=== PATIENT | female | born 1955 | race Two or more races ===

== ENCOUNTER 2019-11-17 16:03 | Inpatient (IN) | payer MEDICARE, OTHER ==
[~2019-11-17] VITALS: Ht 167.6 cm; Wt 111.2 kg
[2019-11-17] MEDS ORDERED: SODIUM CHLORIDE 0.9% 1,000 ML IV ONE (16:45)
[2019-11-17] MEDS ORDERED: MORPHINE SULFATE 4 MG/ML SYR/VIAL IV ONE (16:45)
[2019-11-17] MEDS ORDERED: ONDANSETRON HCL 4 MG/2 ML VIAL IV ONE ×2 (16:45→20:15)
[2019-11-17 16:59] LABS: Basophils # (auto) 0.1 10 ^3/uL (0-0.2); Basophils % (auto) 0.6 % (0.0-2.0); Eosinophils # (auto) 0.4 10 ^3/uL (0-0.8); Eosinophils % (auto) 2.7 % (0.0-7.0); Hematocrit 41.3 % (36.0-46.0); Hemoglobin 13.8 g/dL (12.2-16.2); Lymphocytes # (auto) 1.2 10 ^3/uL (0.4-5.4); Lymphocytes % (auto) 9.5 % (10.0-50.0); Mean Corpuscular Hemoglobin 27.7 pg (28.0-32.0); Mean Corpuscular Hgb Conc. 33.5 g/dL (32.0-36.0); Mean Corpuscular Volume 82.6 fL (80.0-100.0); Monocytes # (auto) 0.6 10 ^3/uL (0-1.3); Monocytes % (auto) 4.4 % (0.0-12.0); Neutrophils # (auto) 10.8 10 ^3/uL (1.6-8.6); Neutrophils % (auto) 82.8 % (37.0-80.0); Nucleated Red Blood Cells % 0.1 %; Platelet Count (auto) 342 10^3/uL (140-450); Red Cell Distribution Width 14.8 % (11.8-14.3); White Blood Cell 13.1 10^3/uL (4.4-10.8)
[2019-11-17 17:16] LABS: Calcium 9.6 mg/dL (8.5-10.1); Potassium 4.2 mmol/L (3.5-5.1)
[2019-11-17 17:20] LABS: Bilirubin, Total 0.6 mg/dL (0.2-1.0); Total Protein 8.3 g/dL (6.4-8.2)
[2019-11-17] MEDS ORDERED: HYDROmorphone HCL 2 MG/ML VL IV ONE ×2 (17:30→19:15)
[2019-11-17] MEDS ORDERED: metroNIDAZOLE 500MG/100ML 100 ML IV ONE (19:15)
[2019-11-17] MEDS ORDERED: cefTRIAXone 1GM/50ML D5W 50 ML IV ONE (19:15)
[2019-11-17] MEDS ORDERED: SITA50TA28 PO (21:13)
[2019-11-17] MEDS ORDERED: LEVO125T7 PO (21:13)
[2019-11-17] MEDS ORDERED: BUPR-60 PO (21:13)
[2019-11-17] MEDS ORDERED: LAMO200T34 PO (21:13)
[2019-11-17] MEDS ORDERED: GLIM-6 PO (21:13)
[2019-11-17] MEDS ORDERED: DEXTROSE (50%) 50ML SYRG IV PRN (21:15)
[2019-11-17 22:05] VITALS: BP 114/61
[2019-11-17 22:21] LABS: INR 1.01 (0.9-1.15); Partial Thromboplastin Time 25.3 sec (23.0-31.2)
[2019-11-17] MEDS: MORPHINE SULFATE 4 MG/ML SYR/VIAL IV PRN (22:31)
--- NOTE | 2019-11-17 22:31 | NUR ---
ER CALLED SURGICAL CONSULT WITH DR. YUSUF.
[2019-11-17] MEDS: SODIUM CHLORIDE 0.9% 1,000 ML IV SCH (22:32)
--- NOTE | 2019-11-17 23:00 | NUR ---
ms admit from ed. pt arrived awake and alert. pt oriented to this nurse, room, restroom, bed controls and call light usage. pt alert and oriented x4, able to transfer from stretcher to bed unassisted without issue. pt reports abdominal pain has been intermittent times one week, typically after meals. pt updated on plan of care. pt bed locked, low and 2x rails up. call light in reach, this nurse to round q1hr and prn. pt encouraged to call as needed.
[2019-11-18] MEDS: ONDANSETRON HCL 4 MG/2 ML VIAL IV PRN ×2 (01:30→08:38)
[2019-11-18] MEDS: MORPHINE SULFATE 4 MG/ML SYR/VIAL IV PRN ×2 (02:48→08:38)
[2019-11-18] MEDS ORDERED: HYDROmorphone HCL 2 MG/ML VL IV ONE (03:15)
--- NOTE | 2019-11-18 03:28 | NUR ---
pt reports no relief from nausea. just vomited copious amount of bilious fluid. this nurse to page hospitalist for change in nausea medication.
[2019-11-18] MEDS ORDERED: PROMETHAZINE HCL 25 MG/ML 1ML IV ONE (05:15)
[2019-11-18 05:18] VITALS: BP 130/61
[2019-11-18] MEDS: InsuLIN REG 1unit/0.01ml Soln (100units/ml) SC SCH ×4 (06:00→18:00)
[2019-11-18] MEDS: metroNIDAZOLE 500MG/100ML 100 ML IV SCH ×3 (06:07→22:07)
[2019-11-18] MEDS: ACCU-CHEK COMFORT CURVE STRIP VI SCH ×4 (06:07→18:03)
[2019-11-18 07:28] LABS: Basophils # (auto) 0 10 ^3/uL (0-0.2); Basophils % (auto) 0.2 % (0.0-2.0); Eosinophils # (auto) 0.1 10 ^3/uL (0-0.8); Eosinophils % (auto) 0.7 % (0.0-7.0); Hematocrit 38.5 % (36.0-46.0); Hemoglobin 12.7 g/dL (12.2-16.2); Lymphocytes # (auto) 0.9 10 ^3/uL (0.4-5.4); Lymphocytes % (auto) 7.8 % (10.0-50.0); Mean Corpuscular Hemoglobin 27.8 pg (28.0-32.0); Mean Corpuscular Hgb Conc. 32.9 g/dL (32.0-36.0); Mean Corpuscular Volume 84.4 fL (80.0-100.0); Monocytes # (auto) 0.5 10 ^3/uL (0-1.3); Monocytes % (auto) 4.6 % (0.0-12.0); Neutrophils # (auto) 9.5 10 ^3/uL (1.6-8.6); Neutrophils % (auto) 86.7 % (37.0-80.0); Nucleated Red Blood Cells % 0.1 %; Platelet Count (auto) 310 10^3/uL (140-450); Red Blood Cells 4.56 10^6/uL (4.0-5.20); Red Cell Distribution Width 14.7 % (11.8-14.3)
[2019-11-18 07:49] LABS: BUN/Creatinine Ratio 22.4; Potassium 4.2 mmol/L (3.5-5.1)
--- NOTE | 2019-11-18 08:00 | NUR ---
Received patient alert and oriented x4, not in distress, clear sounds in bilateral upper and diminished in lower lung lobes, RR=18 Sat=95%, deep breathing and coughing was encouraged, demonstrated and verbalized understanding, denied chest pain and SOB, Heart rate=86, abdomen soft and active in all four quadrants, last BM=11/17/19 as reported, keep NPO as ordered, c/o abdominal pain l=11/21, Morphine IV PRN was given as ordered, skin intact and warm to touch, resting on bed, head of bed elevated, terri on low position, rails up x2, call light on reach, pending surgical consult as ordered, will continue monitoring.
[2019-11-18] MEDS: PANTOPRAZOLE 40 MG/10 ML VIAL INJ IV SCH (08:37)
[2019-11-18] MEDS: cefTRIAXone 1GM/50ML D5W 50 ML IV SCH (08:37)
[2019-11-18] MEDS: SODIUM CHLORIDE 0.9% 1,000 ML IV SCH (08:37)
[2019-11-18 09:00] VITALS: BP 111/73
[2019-11-18] MEDS ORDERED: HYDROmorphone HCL 2 MG/ML VL IV PRN ×4 (10:00→15:30)
[2019-11-18] MEDS ORDERED: SODIUM CHLORIDE 0.9% 1,000 ML IV SCH (10:00)
[2019-11-18] MEDS ORDERED: LACTATED RINGER'S 1,000 ML IV SCH (10:15)
[2019-11-18] MEDS ORDERED: LEVOTHYROXINE SODIUM 50 MCG TAB PO ONE (11:30)
--- NOTE | 2019-11-18 12:30 | NUR ---
CONSENT FORM ON CHART CHECK LIST COMPLETED, NOT IN DISTRESS, WENT ON BED TO PRE OP , TOLERATED WELL, WILL CONTINUE FOLLOW UP.
[2019-11-18] MEDS ORDERED: MIDAZOLAM HCL 1MG/1ML-2 ML VIAL ONE (12:58)
[2019-11-18] MEDS ORDERED: SODIUM CHLORIDE LOCK 10 ML ONE (12:58)
[2019-11-18] MEDS ORDERED: fentaNYL CITRATE 100 MCG/2 ML VL ONE ×2 (12:58→14:29)
[2019-11-18] MEDS ORDERED: MEPERIDINE HCL (25 MG/ML) 1ML VIAL ONE (12:58)
[2019-11-18] MEDS ORDERED: PROPOFOL 10 MG/ML 20 ML IV ONE (12:58)
[2019-11-18] MEDS ORDERED: ONDANSETRON HCL 4 MG/2 ML VIAL ONE (12:58)
[2019-11-18] MEDS ORDERED: ROCURONIUM 10MG/ML 10ML VIAL IV ONE (12:59)
[2019-11-18] MEDS ORDERED: GLYCOPYRROLATE 0.2 MG/ML 1ML VIAL ONE (12:59)
[2019-11-18] MEDS ORDERED: NEOSTIGMINE 1 MG/ML INJ (10mg/10ML VIAL) ONE (12:59)
[2019-11-18 13:00] VITALS: BP 111/44
[2019-11-18] MEDS ORDERED: ACCU-CHEK COMFORT CURVE STRIP VI ONE (13:30)
[2019-11-18] MEDS ORDERED: MORPHINE SULFATE 4 MG/ML SYR/VIAL IV PRN ×2 (13:30→15:30)
[2019-11-18] MEDS ORDERED: METOCLOPRAMIDE HCL 5MG/ml INJ 2ml VIAL IV PRN (13:30)
[2019-11-18] MEDS ORDERED: cefTRIAXone 1GM/50ML D5W 50 ML IV ONE (13:40)
[2019-11-18] MEDS ORDERED: ePHEDrine SULFATE 50 MG/ML AMP IV PRN (15:30)
[2019-11-18] MEDS ORDERED: ONDANSETRON HCL 4 MG/2 ML VIAL IV PRN (15:30)
[2019-11-18] MEDS ORDERED: LABETALOL HCL 5 MG/ML 4ML SYRINGE IV PRN (15:30)
[2019-11-18] MEDS ORDERED: MIDAZOLAM HCL 1MG/1ML-2 ML VIAL IV PRN (15:30)
--- NOTE | 2019-11-18 16:05 | NUR ---
Back from or, alert and oriented x4, not in distress, mid abdominal surgical site covered with dry and intact dressing, abdominal binder on, tolerated well, VS T=98.2 RR=16 Sat=95% P=73 RH=788/68, head of bed elevated, bed on low position, rails up x2, call light on reach, will continue monitoring.
[2019-11-18] MEDS: LACTATED RINGER'S 1,000 ML IV SCH ×2 (16:34→22:07)
[2019-11-18] MEDS: PROMETHAZINE HCL 25 MG/ML 1ML IV PRN (16:37)
--- NOTE | 2019-11-18 19:48 | NUR ---
REPORT WAS GIVEN TO THE PMO MANAGER RN.
--- NOTE | 2019-11-18 20:04 | NUR ---
open note assumed care of pt. upon entering room pt eyes are closed and breathing is even and unlabored on 2L. this nurse does not observe any s/s that would indicate distress. pt bed is locked, low and 2x rails up. call light in reach, this nurse to return and update pt on plan of care. this nurse to round q1hr and prn.
[2019-11-18 22:00] VITALS: BP 107/81
[2019-11-19] MEDS: ACCU-CHEK COMFORT CURVE STRIP VI SCH ×5 (00:34→23:42)
[2019-11-19] MEDS: HYDROmorphone HCL 2 MG/ML VL IV PRN ×2 (03:53→07:37)
--- NOTE | 2019-11-19 04:41 | NUR ---
JOSE ALFREDO 35ml sanguineous fluid emptied.
[2019-11-19 05:00] VITALS: BP 124/63
[2019-11-19] MEDS: InsuLIN REG 1unit/0.01ml Soln (100units/ml) SC SCH ×5 (06:00→23:42)
[2019-11-19 06:07] LABS: Basophils # (auto) 0 10 ^3/uL (0-0.2); Basophils % (auto) 0.3 % (0.0-2.0); Eosinophils # (auto) 0.2 10 ^3/uL (0-0.8); Eosinophils % (auto) 1.4 % (0.0-7.0); Hemoglobin 12.2 g/dL (12.2-16.2); Lymphocytes # (auto) 1.4 10 ^3/uL (0.4-5.4); Lymphocytes % (auto) 13.4 % (10.0-50.0); Mean Corpuscular Hemoglobin 27.9 pg (28.0-32.0); Mean Corpuscular Volume 84.6 fL (80.0-100.0); Monocytes # (auto) 0.9 10 ^3/uL (0-1.3); Monocytes % (auto) 8.2 % (0.0-12.0); Neutrophils # (auto) 8.1 10 ^3/uL (1.6-8.6); Neutrophils % (auto) 76.7 % (37.0-80.0); Platelet Count (auto) 295 10^3/uL (140-450); Red Blood Cells 4.37 10^6/uL (4.0-5.20); Red Cell Distribution Width 14.8 % (11.8-14.3); White Blood Cell 10.6 10^3/uL (4.4-10.8)
[2019-11-19 06:18] LABS: Calcium 8.3 mg/dL (8.5-10.1)
[2019-11-19] MEDS: LEVOTHYROXINE SODIUM 50 MCG TAB PO SCH (06:19)
[2019-11-19] MEDS: metroNIDAZOLE 500MG/100ML 100 ML IV SCH ×3 (06:19→21:33)
[2019-11-19 06:24] LABS: BUN/Creatinine Ratio 19.6; Bilirubin, Total 0.6 mg/dL (0.2-1.0); Total Protein 6.6 g/dL (6.4-8.2)
[2019-11-19] MEDS: LACTATED RINGER'S 1,000 ML IV SCH ×2 (07:36→14:00)
[2019-11-19] MEDS: PROMETHAZINE HCL 25 MG/ML 1ML IV PRN (07:37)
--- NOTE | 2019-11-19 08:00 | NUR ---
Received patient alert and oriented x3, not in distress, clear sounds in bilateral upper and diminished in lower lung lobes, RR=18 Sat=93%, deep breathing and coughing was encouraged, demonstrated and verbalized understanding, denied chest pain and SOB, Heart rate=86, abdomen soft and active in all four quadrants, abdominal incisions covered with intact dressing, rt side JOSE ALFREDO darning serosanguineous drain, tolerating abdominal binder well, c/o abdominal pain l=10/10, Dilaudid IV PRN was given as ordered, general skin intact and warm to touch, resting on bed, head of bed elevated, terri on low position, rails up x2, call light on reach, will continue monitoring.
[2019-11-19 08:33] VITALS: BP 160/76
[2019-11-19] MEDS ORDERED: ACETAMINOPHEN/CODEINE#3 (300/30mg) TAB PO PRN (09:00)
--- NOTE | 2019-11-19 09:00 | NUR ---
RESTING AND SLEEPING, DEEP BREATHING AND COUGHING ENCOURAGED, OUT OF BED PROVIDED, PATIENT REFUSED.
[2019-11-19] MEDS: cefTRIAXone 1GM/50ML D5W 50 ML IV SCH (09:07)
[2019-11-19] MEDS: PANTOPRAZOLE 40 MG/10 ML VIAL INJ IV SCH (09:07)
[2019-11-19] MEDS ORDERED: HYDROcodone-ACET 5/325MG TAB PO PRN (12:45)
[2019-11-19] MEDS ORDERED: HYDROmorphone HCL 2 MG/ML VL IV PRN (12:45)
[2019-11-19 13:00] VITALS: BP 105/68
[2019-11-19] MEDS: HYDROcodone-ACET 5/325MG TAB PO PRN ×2 (14:15→22:00)
--- NOTE | 2019-11-19 16:08 | NUR ---
TEMPTED TO AMBULATE AND SLIDE FROM THE BED TO THE FLOUR REPORTED, NO INJURY OR BACK PAIN REPORTED, C/O LT ANKLE PAIN, DR. CROW WAS NOTIFIED, PENDING LT. ANKLE X RAY ORDERED,
[2019-11-19 17:00] VITALS: BP 119/68
--- NOTE | 2019-11-19 18:00 | NUR ---
OUT OF BED AMBULATED TO , SITTING ON THE CHAIR EATTING DINNER, TOLERATING WELL, WILL CONTINUE MONITORING.
--- NOTE | 2019-11-19 19:05 | NUR ---
AT 1904 SEIZURE ACTIVITY TONIC CLONIC TYPE FOR FEW SECONDS REPORTED BY THE GUARDS, ON ASSESSMENT NO SEIZURE ACTIVITY NOTED, PATIENT ALERT AND ORIENTED, NOT IN DISTRESS, RR=18 SAT=97%, P=82 IB=523/74, DENIED PAIN, PULED OUT RT.AC IV SITE, DR. BONDS WAS CALLED AND LEFT A MASSAGE, WAITING FOR CALL BACK. Addendum: 11/19/19 at 2004 by Lillian Perez RN WRONG PATIENT
--- NOTE | 2019-11-19 19:30 | NUR ---
Opening Shift Note Assumed care of patient, awake and alert. No S/S of distress/SOB or pain. Noted surgical dressing dry with old wound stain, binder on. Updated on POC and to call for assist PRN, patient verbalized understanding. Bed in lowest and locked position, call light within reach, will continue to monitor for changes Q1hr and PRN.
--- NOTE | 2019-11-19 19:30 | NUR ---
Opening Shift Note Assumed care of patient, awake and alert. No S/S of distress/SOB or pain. Noted surgical incision dry and open to air, with JOSE ALFREDO draining to serosanguinous output, binder on. Updated on POC and to call for assist PRN, patient verbalized understanding. Bed in lowest and locked position, call light within reach, will continue to monitor for changes Q1hr and PRN. Addendum: 11/20/19 at 2310 by Isela Rollins RN RN Wrong date/time
--- NOTE | 2019-11-19 20:04 | NUR ---
REPORT WAS GIVEN TO THE OUTSIDE SALESPERSON RN.
[2019-11-19 22:00] VITALS: BP 114/69
--- NOTE | 2019-11-19 23:25 | NUR ---
Patient complained of gassy stomach, noted no prn med at this time. Instructed to turn to her side and stay upright, patient verbalized understanding. Will page hospitalist
[2019-11-19] MEDS: ONDANSETRON HCL 4 MG/2 ML VIAL IV PRN (23:40)
--- NOTE | 2019-11-20 00:20 | NUR ---
Hospitalist Lonnie called and updated on patient's status and reason for call. Received order at this time and read back
[2019-11-20] MEDS ORDERED: CALCIUM CARB 500 MG CHEW TAB PO PRN (00:30)
[2019-11-20] MEDS: LACTATED RINGER'S 1,000 ML IV SCH (02:05)
--- NOTE | 2019-11-20 05:15 | NUR ---
Emptied 50ml of serosanguinous output from JOSE ALFREDO
[2019-11-20] MEDS: metroNIDAZOLE 500MG/100ML 100 ML IV SCH (05:24)
[2019-11-20] MEDS: ACCU-CHEK COMFORT CURVE STRIP VI SCH ×3 (05:51→18:00)
[2019-11-20] MEDS: InsuLIN REG 1unit/0.01ml Soln (100units/ml) SC SCH ×3 (05:51→18:00)
[2019-11-20] MEDS: HYDROcodone-ACET 5/325MG TAB PO PRN (05:58)
[2019-11-20] MEDS: LEVOTHYROXINE SODIUM 50 MCG TAB PO SCH (05:59)
[2019-11-20 06:00] VITALS: BP 133/76
--- NOTE | 2019-11-20 07:30 | NUR ---
Opening Shift Note Assumed care of patient, awake and alert. No S/S of distress/SOB or pain. Instructed on POC and to call for assist PRN, will continue to monitor for changes Q1hr and PRN. Fall precautions in place per safety protocol.
[2019-11-20 08:00] VITALS: BP 140/75
[2019-11-20] MEDS: cefTRIAXone 1GM/50ML D5W 50 ML IV SCH (08:31)
[2019-11-20] MEDS: PANTOPRAZOLE 40 MG/10 ML VIAL INJ IV SCH (08:31)
[2019-11-20 08:58] LABS: Basophils # (auto) 0.1 10 ^3/uL (0-0.2); Basophils % (auto) 0.5 % (0.0-2.0); Eosinophils # (auto) 0.6 10 ^3/uL (0-0.8); Eosinophils % (auto) 4.5 % (0.0-7.0); Hematocrit 38.2 % (36.0-46.0); Hemoglobin 12.6 g/dL (12.2-16.2); Lymphocytes # (auto) 1.1 10 ^3/uL (0.4-5.4); Lymphocytes % (auto) 8.4 % (10.0-50.0); Mean Corpuscular Hemoglobin 27.6 pg (28.0-32.0); Mean Corpuscular Hgb Conc. 32.9 g/dL (32.0-36.0); Mean Corpuscular Volume 83.9 fL (80.0-100.0); Monocytes # (auto) 0.8 10 ^3/uL (0-1.3); Monocytes % (auto) 6.6 % (0.0-12.0); Neutrophils # (auto) 10.1 10 ^3/uL (1.6-8.6); Platelet Count (auto) 296 10^3/uL (140-450); Red Blood Cells 4.55 10^6/uL (4.0-5.20); Red Cell Distribution Width 14.6 % (11.8-14.3); White Blood Cell 12.6 10^3/uL (4.4-10.8)
[2019-11-20 09:15] LABS: Albumin 3.1 g/dL (3.4-5.0); Calcium 8.9 mg/dL (8.5-10.1); Potassium 3.9 mmol/L (3.5-5.1)
[2019-11-20 09:20] LABS: BUN/Creatinine Ratio 23.3; Bilirubin, Total 0.9 mg/dL (0.2-1.0); Total Protein 7.2 g/dL (6.4-8.2)
[2019-11-20] MEDS: HYDROmorphone HCL 2 MG/ML VL IV PRN ×2 (09:33→19:48)
--- NOTE | 2019-11-20 11:00 | NUR ---
Hospitalist MD Logan at bedside aware of patient status. New orders for JOSE ALFREDO Drain education received. Will cont to monitor patient. Per MD Logan, patient is a possible dc tomorrow.
[2019-11-20] MEDS ORDERED: PANTOPRAZOLE 40 MG TAB PO ONE (11:15)
[2019-11-20] MEDS ORDERED: DOCUSATE SOD 100 MG CAP PO ONE (11:30)
[2019-11-20 13:00] VITALS: BP 130/77
[2019-11-20 14:08] LABS: Urine Bacteria NONE SEEN /hpf (None Seen); Urine Blood Negative /uL (Negative); Urine Hyaline Cast FEW /lpf (0 - 2); Urine Mucus FEW (None Seen); Urine Specific Gravity 1.025 (1.001-1.035); Urine WBC 20 /hpf (0 - 5)
--- NOTE | 2019-11-20 15:17 | NUR ---
Nutrition Assessment Notes Please refer to link for full assessment notes. Est Energy needs: 3171-0192 kcals (14-18 kcal/kgBW) Est Protein needs: 109-120 gms/day (1.0-1.1 gm/kgBW) Will continue to monitor and reassess prn. Addendum: 11/20/19 at 1518 [address] Amended: Links added.
[2019-11-20] MEDS: ONDANSETRON HCL 4 MG/2 ML VIAL IV PRN ×2 (15:21→19:48)
[2019-11-20] MEDS: metroNIDAZOLE 500 MG TAB PO SCH ×2 (15:21→21:41)
[2019-11-20 16:52] VITALS: BP 96/54
--- NOTE | 2019-11-20 17:30 | NUR ---
JOSE ALFREDO Drain JOSE ALFREDO Drainage education given. Patient returned demonstration and verbalized understanding at this time. Patient drained 50 ML of serosanguineous fluid drained at this time.
--- NOTE | 2019-11-20 19:30 | NUR ---
Opening Shift Note Assumed care of patient, awake and alert. No S/S of distress/SOB or pain. Noted surgical incision dry and open to air, with JOSE ALFREDO draining to serosanguinous output, binder on. Updated on POC and to call for assist PRN, patient verbalized understanding. Bed in lowest and locked position, call light within reach, will continue to monitor for changes Q1hr and PRN.
[2019-11-20] MEDS: DOCUSATE SOD 100 MG CAP PO SCH (21:41)
[2019-11-20 22:00] VITALS: BP 131/75
[2019-11-21] MEDS: ACCU-CHEK COMFORT CURVE STRIP VI SCH ×5 (00:09→23:18)
[2019-11-21] MEDS: ONDANSETRON HCL 4 MG/2 ML VIAL IV PRN ×5 (02:55→22:44)
[2019-11-21] MEDS: HYDROmorphone HCL 2 MG/ML VL IV PRN ×3 (02:55→13:09)
[2019-11-21 05:00] VITALS: BP 126/88
--- NOTE | 2019-11-21 05:49 | NUR ---
Emptied 20ml of serosanguinous output from JOSE ALFREDO
[2019-11-21] MEDS: metroNIDAZOLE 500 MG TAB PO SCH ×2 (05:53→14:00)
[2019-11-21] MEDS: InsuLIN REG 1unit/0.01ml Soln (100units/ml) SC SCH ×5 (05:54→23:18)
[2019-11-21] MEDS: LEVOTHYROXINE SODIUM 50 MCG TAB PO SCH (05:54)
--- NOTE | 2019-11-21 07:55 | NUR ---
Opening Shift Note Assumed care of patient, awake and alert, sitting up in bed. No S/S of distress/SOB or pain. Instructed on POC and to call for assist PRN, will continue to monitor for changes Q1hr and PRN.
[2019-11-21] MEDS: cefTRIAXone 1GM/50ML D5W 50 ML IV SCH (08:56)
[2019-11-21 09:00] VITALS: BP 150/84
[2019-11-21] MEDS ORDERED: PANTOPRAZOLE 40 MG TAB PO SCH (10:00)
[2019-11-21] MEDS: DOCUSATE SOD 100 MG CAP PO SCH ×2 (10:53→21:10)
--- NOTE | 2019-11-21 12:05 | NUR ---
Hospitalist Yoing Dr. Logan at bedside.
[2019-11-21] MEDS ORDERED: LACTULOSE 20Gm/30ML SOLN PO ONE (12:15)
[2019-11-21 13:00] VITALS: BP 152/86
--- NOTE | 2019-11-21 14:10 | NUR ---
assessment Patient is a 64 year old female who is alert and oriented. Patients cognitive abilities are intact. Prior to admission patient lived home with family and functioned independently. Patient informed me she is able to care for her own ADLs. Per patient she will return home to her prior living arrangements post discharge and family will transport her home. [place] Patient informed me she will stay here with her . Patient will change her insurance to the [facility]. At this time patients PCP is Dr Lazar in [place]. Patient has no post discharge needs identified at this time. I informed patient she has a right to speak to a psychiatric social worker regarding all care. I informed patient she has a right to participate in any and all discharge planning. Patient does not have a POA and advanced directive. I have offered patient information on POA and advanced directives. I informed the patient the advantages and benefits of having an Advanced Directive. Patient verbalized understanding and agreed to discharge plan. Addendum: 11/21/19 at 1414 by Cara SALAZAR Amended: Links added.
[2019-11-21] MEDS ORDERED: MORPHINE SULF INJ 2 MG/ML SYRINGE 1ML IV PRN (15:30)
[2019-11-21 17:00] VITALS: BP 146/81
--- NOTE | 2019-11-21 19:45 | NUR ---
Opening Shift Note Assumed care of patient, awake and alert. Fall and safety precautions in place. Call light within reach and able to use. No S/S of distress/SOB. Instructed on POC and to call for assist PRN, patient verbalized understanding and in agreement. Will continue to monitor for changes Q1hr and PRN.
[2019-11-21] MEDS: metroNIDAZOLE 500MG/100ML 100 ML IV SCH (21:10)
[2019-11-21 22:00] VITALS: BP 135/79
--- NOTE | 2019-11-22 01:33 | NUR ---
EMESIS PATIENT GIVEN CHICKEN BROTH PER PATIENT REQUEST. PATIENT AT THIS TIME HAS EPISODE OF GREEN CLEAR EMESIS. ZOFRAN NOT DUE. PATIENT ASSISTED AND CLEANED UP. WILL CONTINUE TO MONITOR.
[2019-11-22] MEDS: ONDANSETRON HCL 4 MG/2 ML VIAL IV PRN (03:03)
[2019-11-22 05:00] VITALS: BP 134/66
[2019-11-22] MEDS: InsuLIN REG 1unit/0.01ml Soln (100units/ml) SC SCH ×2 (05:48→12:00)
[2019-11-22] MEDS: metroNIDAZOLE 500MG/100ML 100 ML IV SCH ×2 (05:48→13:43)
[2019-11-22] MEDS: ACCU-CHEK COMFORT CURVE STRIP VI SCH ×2 (05:48→12:00)
[2019-11-22] MEDS: LEVOTHYROXINE SODIUM 50 MCG TAB PO SCH (06:00)
[2019-11-22 08:00] VITALS: BP 122/74
--- NOTE | 2019-11-22 08:00 | NUR ---
Opening Shift Note Assumed care of patient, awake, alert and oriented X4. No S/S of distress/SOB, complains of abdominal pain, 08/21, verbalized she does not want the pain medication she has been getting as it makes her nauseous, informed I would page the doctor to request the Ultram she will be discharged home on, verbalized agreement. IV to right upper arm, 20 gauge, patent and saline locked. Right upper medial abdominal incision with tanja clean, dry and intact, open to air, supraumbilical incision with staple clean, dry and intact, right lower abdominal JOSE ALFREDO drain with 10 ml's of sanguinous drainage noted. Instructed on POC and to call for assist PRN, verbalized understanding. Bed locked, in lowest position, call light within reach, will continue to monitor for changes Q1hr and PRN.
[2019-11-22] MEDS: cefTRIAXone 1GM/50ML D5W 50 ML IV SCH (09:24)
[2019-11-22] MEDS ORDERED: PANTOPRAZOLE 40 MG/10 ML VIAL INJ IV SCH (10:00)
[2019-11-22] MEDS: DOCUSATE SOD 100 MG CAP PO SCH (10:01)
[2019-11-22] MEDS ORDERED: traMADol HCL 50 MG TAB PO PRN (10:45)
--- NOTE | 2019-11-22 11:15 | NUR ---
ROUNDS Dr Everett at bedside for rounds, new orders received and followed through. Patient updated on plan of care, verbalized understanding.
[2019-11-22 13:00] VITALS: BP 146/71
--- NOTE | 2019-11-22 14:22 | NUR ---
Nutrition Followup Note Wt 111.2kg Pt was alert and oriented at time of rounds. Pt reports appetite is not good. Reports some nausea and vomiting, reports last BM not sure but is ready to go to the bathroom now. Pt with a full liquid diet with a fair po intake aeb pt with an avg po intake of 69% of full liquid diet. Est Energy needs: 3953-1960 kcals (14-18 kcal/kgBW) Est Protein needs: 109-120 gms/day (1.0-1.1 gm/kgBW) Will continue to monitor and reassess prn. Labs; GLUC 115H, Alb 3.1L, BUN 21H BM: Pt reports she will have one today Skin: BS 20 low risk, full details in physician assistant primary care note. PES Obesity r/t energy intake in excess of energy needs aeb 184% IBW and BMI of 38.7 kg/m2 Comments Will continue to monitor PO status, skin status, pertinent labs and weight trends. Will f/u in 3-5 days. 1) Continue to carefully monitor pt PO intake to meet at least 75% of meals 2) Gradually advance pt to oral CCHO 60g diet when medically feasible and as tolerated 3) Continue current plan of care Expected Outcomes/Goals: Pt to continue to advance to an oral diet Pt appetite to remain >75% PO intake
[2019-11-22 15:03] VITALS: BP 146/71
--- NOTE | 2019-11-22 16:35 | NUR ---
Discharge instructions given as ordered. Encourage to follow up with PMD as instructed. All questions and concerns addressed. Patient verbalized understanding. Medication reconciliation form completed and copy given to patient. IV removed with catheter intact, pressure dressing applied. Patient instructed on how to empty her JOSE ALFREDO drain, verbalized understanding and demonstrated correctly. Patient taken to vehicle via wheelchair with all personal belongings, accompanied by staff and family member. No distress noted at time of departure.
== END 2019-11-22 16:30 | disposition home or self-care (01) | DRG 416 ==
LOC: ER 16:03 → OVERFLOW 16:04 → WEST WING 21:48
PROVIDERS: ADMIT Nurse Practitioner; ATTEND Internal Medicine
PROC: 0FJ44ZZ Inspection of Gallbladder, Percutaneous Endoscopic Approach (ICD-10-PCS; 2019-11-18)
PROC: 0FT40ZZ Resection of Gallbladder, Open Approach (ICD-10-PCS; principal; 2019-11-18 13:51)
DX: K80.00 Calculus of gallbladder with acute cholecystitis without obstruction (principal); D72.829 Elevated white blood cell count, unspecified; E66.9 Obesity, unspecified; E11.9 Type 2 diabetes mellitus without complications; Z20.828 Contact with and (suspected) exposure to other viral communicable diseases; E03.9 Hypothyroidism, unspecified; Z71.3 Dietary counseling and surveillance; Z68.38 Body mass index [BMI] 38.0-38.9, adult; Z53.31 Laparoscopic surgical procedure converted to open procedure; Z79.899 Other long term (current) drug therapy
CPT/HCPCS: 36415; 71045; 73600; 76705; 80048; 80053; 81001; 82150; 82962; 83036; 83690; 84443; 85025; 85610; 85730; 86850; 86870; 86900; 86901; 87040; 87426; C9113; G0378; J0696; J1815; J2250; J2405; J2704; J3490

== ENCOUNTER 2019-12-03 18:58 | Inpatient (IN) | payer MEDICARE ==
[~2019-12-03] VITALS: Ht 167.6 cm; Wt 104.4 kg
[~2019-12-03 18:58] MED LIST: BUPR-60 PO; GLIM-6 PO; LAMO200T34 PO; LEVO125T7 PO; SITA50TA28 PO
[2019-12-03 21:45] LABS: Basophils # (auto) 0.1 10 ^3/uL (0-0.2); Eosinophils # (auto) 0.8 10 ^3/uL (0-0.8); Monocytes # (auto) 1.2 10 ^3/uL (0-1.3); Neutrophils # (auto) 5.4 10 ^3/uL (1.6-8.6); Red Cell Distribution Width 15.4 % (11.8-14.3)
[2019-12-03] MEDS ORDERED: SODIUM CHLORIDE 0.9% 1,000 ML IV ONE (21:45)
[2019-12-03] MEDS ORDERED: MORPHINE SULFATE 4 MG/ML SYR/VIAL IV ONE (21:45)
[2019-12-03] MEDS ORDERED: ONDANSETRON HCL 4 MG/2 ML VIAL IV ONE (21:45)
[2019-12-03] MEDS ORDERED: SODIUM CHLORIDE 0.9% 500 ML IV ONE (21:45)
[2019-12-03 21:48] LABS: Basophils % (auto) 0.6 % (0.0-2.0); Eosinophils % (auto) 9.1 % (0.0-7.0); Hematocrit 39.2 % (36.0-46.0); Hemoglobin 13.1 g/dL (12.2-16.2); Lymphocytes # (auto) 1.7 10 ^3/uL (0.4-5.4); Lymphocytes % (auto) 18.7 % (10.0-50.0); Mean Corpuscular Hemoglobin 27.5 pg (28.0-32.0); Mean Corpuscular Hgb Conc. 33.3 g/dL (32.0-36.0); Mean Corpuscular Volume 82.6 fL (80.0-100.0); Monocytes % (auto) 13.5 % (0.0-12.0); Neutrophils % (auto) 58.1 % (37.0-80.0); Nucleated Red Blood Cells % 0.1 %; Platelet Count (auto) 511 10^3/uL (140-450); Red Blood Cells 4.75 10^6/uL (4.0-5.20); White Blood Cell 9.2 10^3/uL (4.4-10.8)
[2019-12-03 22:05] LABS: INR 1.01 (0.9-1.15); Partial Thromboplastin Time 25.5 sec (23.0-31.2)
[2019-12-03 23:05] LABS: Albumin 2.7 g/dL (3.4-5.0); BUN/Creatinine Ratio 26.7; Calcium 8.9 mg/dL (8.5-10.1); Potassium 3.4 mmol/L (3.5-5.1)
[2019-12-03 23:08] LABS: Bilirubin, Total 0.3 mg/dL (0.2-1.0); Total Protein 6.7 g/dL (6.4-8.2)
[2019-12-04 00:04] LABS: Urine Bacteria FEW /hpf (None Seen); Urine Blood Negative /uL (Negative); Urine Specific Gravity 1.019 (1.001-1.035); Urine WBC 36 /hpf (0 - 5); Urine WBC Clumps PRESENT /hpf (None Seen)
[2019-12-04] MEDS: SODIUM CHLORIDE 0.9% 1,000 ML IV SCH ×2 (00:30→12:43)
[2019-12-04] MEDS ORDERED: POTASSIUM CHL 20MEQ/100ML 100 ML IV ONE (00:30)
--- NOTE | 2019-12-04 01:30 | NUR ---
pt got floor, no NGT in place as per RENETTA Fleming SCOURING PADS SUPERVISOR stated ok to hold off NGT if the pt is not vomiting
[2019-12-04 01:40] VITALS: BP 107/63
[2019-12-04] MEDS: ONDANSETRON HCL 4 MG/2 ML VIAL IV PRN ×5 (01:54→20:20)
[2019-12-04] MEDS: MORPHINE SULFATE 4 MG/ML SYR/VIAL IV PRN ×5 (01:58→20:20)
--- NOTE | 2019-12-04 02:00 | NUR ---
pt is nauseous,refused NGT placement, nausea and pain med will be given as per pt
[2019-12-04 05:00] VITALS: BP 113/59
--- NOTE | 2019-12-04 07:26 | NUR ---
closing note endorsed care to day RN, pt is resting with eyes closed, nausea and pain med given earlier
[2019-12-04 09:00] VITALS: BP 102/53
[2019-12-04] MEDS: cefTRIAXone 1GM/50ML D5W 50 ML IV SCH (09:44)
[2019-12-04] MEDS: PANTOPRAZOLE 40 MG/10 ML VIAL INJ IV SCH (09:44)
[2019-12-04] MEDS ORDERED: GASTROGRAFIN 120 ML SOL ONE (09:54)
--- NOTE | 2019-12-04 11:20 | NUR ---
Nutrition Consult Pt is a consult for refusing to eat, pt is currently NPO Will monitor pt po intake and tolerance of diet when pt is no longer NPO Est energy needs 0906-7815 kcal (14-18 kcal/kg BW 103kg) Est protein needs 59-77g (1-1.3g/kg IBW 59kg) Will reassess prn. Addendum: 12/04/19 at [address] Amended: Links added.
--- NOTE | 2019-12-04 11:40 | NUR ---
RETURN FOR X-RAY Patient returned to unit after small bowel series. Patient complaining of abd pain and nausea, medicated as ordered. Dr Renner rounding on patient. Per Doctor Renner, call surgeon Dr Dietrich to obtain any diet orders once test results are finalized.
[2019-12-04 12:53] VITALS: BP 109/59
--- NOTE | 2019-12-04 15:03 | NUR ---
PAGED Patient small bowel series still pending at this time. Patient asking about water and diet. Dr Dietrich paged.
--- NOTE | 2019-12-04 15:40 | NUR ---
Spoke with Doctor Karlo and x-ray tech, small bowel series not complete at this time. Patient to stay NPO until test complete. Patient educated and verbalized understanding.
--- NOTE | 2019-12-04 16:31 | NUR ---
The 64-year-old female, who is alert and oriented. Patient stated that her cognitive abilities is not intact. Patient stated that she is unemployed, but is employed. Patient stated that for 2-3 weeks she has been feeling week. Patient stated that she is capable to ambulate without ambulatory equipment. Patient stated that she needs assistance with her ADLs due to weakness. Patient stated that her [id number] help her with ADLs. Patient stated that post discharge she has plans to return home with her . Patient stated that her Roman has transportation for post discharge. Patient stated that her and [id number] are her support system. Discharge planning: SW has provided home health and equipment if patient qualify. Addendum: 12/04/19 at 1632 by JULES CABALLERO Amended: Links added.
[2019-12-04 16:53] VITALS: BP 117/86
--- NOTE | 2019-12-04 19:35 | NUR ---
Opening Shift Note Assumed care of patient, awake and alert. No S/S of distress/SOB or pain. Instructed on POC and to call for assist PRN, will continue to monitor for changes Q1hr and PRN.
[2019-12-04 22:00] VITALS: BP 119/74
[2019-12-05] MEDS: SODIUM CHLORIDE 0.9% 1,000 ML IV SCH ×3 (00:58→23:31)
[2019-12-05] MEDS: MORPHINE SULFATE 4 MG/ML SYR/VIAL IV PRN ×4 (01:22→20:03)
[2019-12-05] MEDS: ONDANSETRON HCL 4 MG/2 ML VIAL IV PRN ×4 (01:22→20:03)
[2019-12-05 05:00] VITALS: BP 123/61
--- NOTE | 2019-12-05 05:08 | NUR ---
Opening Shift Note Assumed care of patient, awake and alert. No S/S of distress/SOB or pain. Instructed on POC and to call for assist PRN, will continue to monitor for changes Q1hr and PRN. Addendum: 12/05/19 at 0509 by Charleen Jennings RN incorrect time
[2019-12-05 06:56] LABS: Basophils # (auto) 0 10 ^3/uL (0-0.2); Basophils % (auto) 0.6 % (0.0-2.0); Eosinophils # (auto) 0.4 10 ^3/uL (0-0.8); Eosinophils % (auto) 5.8 % (0.0-7.0); Hematocrit 36.8 % (36.0-46.0); Lymphocytes # (auto) 1.8 10 ^3/uL (0.4-5.4); Lymphocytes % (auto) 26.5 % (10.0-50.0); Mean Corpuscular Hemoglobin 27.4 pg (28.0-32.0); Mean Corpuscular Hgb Conc. 32.7 g/dL (32.0-36.0); Monocytes # (auto) 0.6 10 ^3/uL (0-1.3); Monocytes % (auto) 9.6 % (0.0-12.0); Neutrophils # (auto) 3.9 10 ^3/uL (1.6-8.6); Neutrophils % (auto) 57.5 % (37.0-80.0); Platelet Count (auto) 413 10^3/uL (140-450); Red Blood Cells 4.39 10^6/uL (4.0-5.20); Red Cell Distribution Width 16.1 % (11.8-14.3); White Blood Cell 6.8 10^3/uL (4.4-10.8)
[2019-12-05 07:18] LABS: Potassium 3.3 mmol/L (3.5-5.1)
[2019-12-05 07:26] LABS: Albumin 2.4 g/dL (3.4-5.0); BUN/Creatinine Ratio 31.7; Bilirubin, Total 0.4 mg/dL (0.2-1.0); Total Protein 5.8 g/dL (6.4-8.2)
[2019-12-05 08:00] VITALS: BP 115/57
[2019-12-05 08:43] VITALS: BP 115/57
[2019-12-05] MEDS: cefTRIAXone 1GM/50ML D5W 50 ML IV SCH (08:43)
[2019-12-05] MEDS: PANTOPRAZOLE 40 MG/10 ML VIAL INJ IV SCH (08:43)
--- NOTE | 2019-12-05 10:35 | NUR ---
Advance diet as tolerated as ordered by Dr. Dietrich; check order history. Patient stated the doctor came over earlier and told her she can eat.
--- NOTE | 2019-12-05 11:45 | NUR ---
Jigna Pantoja at bedside. MD ordered to follow up w/ Dr. Dietrich if patient is going to be discharged w/ JOSE ALFREDO bulb. Patient for possible discharge tomorrow, Sunday as per Dr. Renner.
[2019-12-05 13:04] VITALS: BP 116/62
[2019-12-05 17:24] VITALS: BP 116/64
--- NOTE | 2019-12-05 20:03 | NUR ---
RECEIVED PATIENT FROM DAY SHIFT RN. PATIENT RESTING IN BED. NO S/S OF DISTRESS NOTED. C/O PAIN @ 08/21, MEDICATED PATIENT ORDERED. INCISION OPEN TO AIR WITH NO S/S OF INFECTION NOTED. JOSE ALFREDO DRAIN IN PLACE DRAINING TO GRAVITY, BUT NOTHING OUT. POC INSTRUCTED AND ENCOURAGED PATIENT TO CALL FOR TABLE GAMES SHIFT MANAGER IF NEEDED. BED IN LOWEST LOCKED POSITION WITH SIDE RAILS UP X 2. CALL BARTON WITHIN REACH. ALARM ON. CONTINUE TO MONITOR FOR CHANGES Q1H AND PRN.
[2019-12-05 22:00] VITALS: BP 105/42
[2019-12-06] MEDS: MORPHINE SULFATE 4 MG/ML SYR/VIAL IV PRN ×5 (00:08→23:34)
[2019-12-06] MEDS: ONDANSETRON HCL 4 MG/2 ML VIAL IV PRN ×4 (00:08→14:34)
--- NOTE | 2019-12-06 00:09 | NUR ---
PATIENT C/O PAIN @ 09/21, MEDICATED ORDERED. CONTINUE TO MONITOR.
--- NOTE | 2019-12-06 02:07 | NUR ---
PATIENT SLEEPING. NO S/S OF DISTRESS NOTED. CONTINUE TO MONITOR.
--- NOTE | 2019-12-06 04:17 | NUR ---
PATIENT C/O PAIN @ 08/21, MEDICATED ORDERED. CONTINUE TO MONITOR.
[2019-12-06 05:00] VITALS: BP_SYST 128; BP_SYST 98; BP_DIAS 40; BP_DIAS 79
[2019-12-06 08:33] VITALS: BP 115/75
[2019-12-06] MEDS: PANTOPRAZOLE 40 MG/10 ML VIAL INJ IV SCH (08:49)
[2019-12-06] MEDS: cefTRIAXone 1GM/50ML D5W 50 ML IV SCH (08:49)
--- NOTE | 2019-12-06 10:59 | NUR ---
Nutrition Followup Note Wt 105.1kg Pt was sleeping with no family at bedside at time of rounds. Pt was a previous consult for refusing to eat, pt diet advanced to regular diet with good intake aeb pt with 75% x 2 days per Rn note. Est energy needs 1664-5847 kcal (14-18 kcal/kg BW 103kg) Est protein needs 59-77g (1-1.3g/kg IBW 59kg) Will reassess prn. Labs: CO2 20L, BUn 32H, Ca 8.0L, Alb 2.4L BM: Pt with 6 BMs 12/05 per Rn note Skin: BS 17 mod risk, full details in weekend caregiver note PES: Obesity r/t caloric intake in excess of needs aeb pt with a BMI of 36.7kg/m2 Altered nutrition related labs r/t current and chronic medical conditions aeb pt with hyponatremia, hypokalemia, hyperglycemia, elevated RFTs Comments 1) Continue to monitor po status, labs, skin 2) refer pt to [facility] on DC 3) Continue current plan of care Expected Outcomes/Goals: 1) continue diet as medically feasible2) pt to have >75% po intake 3) f/u 3-5 days
[2019-12-06] MEDS: SODIUM CHLORIDE 0.9% 1,000 ML IV SCH ×2 (11:20→23:06)
--- NOTE | 2019-12-06 12:36 | NUR ---
Low Potassium Hospitalist was notified of patient's low potassium. Received telephone order, same read back and verified and entered in eMAR.
[2019-12-06 12:39] VITALS: BP 120/58
[2019-12-06] MEDS ORDERED: POTASSIUM CHL 20 Meq TABLET PO ONE (12:45)
[2019-12-06 16:39] VITALS: BP 109/62
--- NOTE | 2019-12-06 18:22 | NUR ---
JOSE ALFREDO Emptied 15mls of serous looking fluid from JOSE ALFREDO drain.
--- NOTE | 2019-12-06 18:39 | NUR ---
Phone call with Dr. Karlo Dietrich will see patient tomorrow morning 12/06.
--- NOTE | 2019-12-06 19:30 | NUR ---
Opening Shift Note Assumed care of patient, awake and alert. No S/S of distress/SOB. Instructed on POC and to call for assist PRN. Bed isin lowest locked position with bed rails up x2 and call light is within reach of the patient.
[2019-12-06 22:00] VITALS: BP 106/50
[2019-12-07 05:00] VITALS: BP 126/46
--- NOTE | 2019-12-07 07:01 | NUR ---
JOSE ALFREDO Emptied 5mls of serous looking fluid from JOSE ALFREDO drain.
--- NOTE | 2019-12-07 09:35 | NUR ---
Surgeon Rounding Dr. Dietrich at bedside, JOSE ALFREDO drain removed and verbal orders received to remove tanja from incision.
[2019-12-07 09:36] VITALS: BP 110/74
[2019-12-07] MEDS: ONDANSETRON HCL 4 MG/2 ML VIAL IV PRN (09:42)
[2019-12-07] MEDS: PANTOPRAZOLE 40 MG/10 ML VIAL INJ IV SCH (09:42)
[2019-12-07] MEDS: cefTRIAXone 1GM/50ML D5W 50 ML IV SCH (09:42)
--- NOTE | 2019-12-07 10:50 | NUR ---
[place] Heena removed as ordered from incision, a total of 14. Patient tolerated it well. Incision cleaned and left open to air.
[2019-12-07 12:26] VITALS: BP 123/56
[2019-12-07 12:42] VITALS: BP 123/56
--- NOTE | 2019-12-07 16:20 | NUR ---
Discharge instructions given as ordered. Encourage to follow up with PMD as instructed. All questions and concerns addressed. Patient verbalized understanding. Medication reconciliation form completed and copy given to patient. IV removed with catheter intact and pressure dressing applied. Patient taken to vehicle via wheelchair with all personal belongings accompanied by staff. No distress noted at time of departure.
== END 2019-12-07 16:25 | disposition home or self-care (01) | DRG 388 ==
LOC: ER 18:59 → OVERFLOW 19:00 → WEST WING 12-04 01:51
PROVIDERS: ADMIT Nurse Practitioner; ATTEND Family Medicine
DX: K56.51 Intestinal adhesions [bands], with partial obstruction (principal); N17.0 Acute kidney failure with tubular necrosis; N39.0 Urinary tract infection, site not specified; E03.9 Hypothyroidism, unspecified; Z83.3 Family history of diabetes mellitus; Z90.49 Acquired absence of other specified parts of digestive tract; E66.01 Morbid (severe) obesity due to excess calories; Z68.37 Body mass index [BMI] 37.0-37.9, adult; Z82.49 Family history of ischemic heart disease and other diseases of the circulatory system; Z79.84 Long term (current) use of oral hypoglycemic drugs
CPT/HCPCS: 36415; 74176; 74250; 80053; 81001; 83605; 83880; 85025; 85610; 85730; 87045; 87081; 87427; 96361; 96365; 96375; C9113; G0378; J0696; J2405; J3480

== ENCOUNTER 2020-05-29 11:45 | Inpatient (IN) | payer MEDICARE, OTHER ==
[~2020-05-29] VITALS: Ht 167.6 cm; Wt 102.9 kg
[2020-05-29 12:40] LABS: Basophils # (auto) 0.1 10 ^3/uL (0-0.2); Basophils % (auto) 0.8 % (0.0-2.0); Eosinophils # (auto) 0.3 10 ^3/uL (0-0.8); Eosinophils % (auto) 3.1 % (0.0-7.0); Hematocrit 39.3 % (36.0-46.0); Hemoglobin 13.1 g/dL (12.2-16.2); Lymphocytes # (auto) 2.2 10 ^3/uL (0.4-5.4); Mean Corpuscular Hgb Conc. 33.4 g/dL (32.0-36.0); Monocytes # (auto) 0.5 10 ^3/uL (0-1.3); Monocytes % (auto) 5.7 % (0.0-12.0); Neutrophils # (auto) 5.1 10 ^3/uL (1.6-8.6); Neutrophils % (auto) 63.4 % (37.0-80.0); Platelet Count (auto) 328 10^3/uL (140-450); Red Blood Cells 4.68 10^6/uL (4.0-5.20); Red Cell Distribution Width 15.5 % (11.8-14.3); White Blood Cell 8.1 10^3/uL (4.4-10.8)
[2020-05-29 12:58] LABS: Albumin 3.5 g/dL (3.4-5.0); Anion Gap 10 (5-15); Blood Urea Nitrogen 18 mg/dL (7-18); Calcium 9.1 mg/dL (8.5-10.1); Carbon Dioxide 23 mmol/L (21-32); Chloride 108 mmol/L (98-107); Glucose 130 mg/dL (74-106); Potassium 3.9 mmol/L (3.5-5.1); Sodium 141 mmol/L (136-145)
[2020-05-29 13:05] LABS: Alanine Aminotransferase 20 U/L (13-56); Alkaline Phosphatase 68 U/L (45-117); Aspartate Aminotransferase 13 U/L (15-37); BUN/Creatinine Ratio 19.4; Bilirubin, Total 0.5 mg/dL (0.2-1.0); GFR African American 78 mL/min; GFR Non-African American 64 mL/min; Total Protein 7.6 g/dL (6.4-8.2)
[2020-05-29] MEDS ORDERED: MORPHINE SULF INJ 2 MG/ML SYRINGE 1ML IV ONE (13:45)
[2020-05-29] MEDS ORDERED: ONDANSETRON HCL 4 MG/2 ML VIAL IV ONE (13:45)
[2020-05-29 15:05] LABS: Urine Bacteria NONE SEEN /hpf (None Seen); Urine Blood Negative /uL (Negative); Urine Specific Gravity 1.017 (1.001-1.035); Urine WBC 2 /hpf (0 - 5)
[2020-05-29 15:16] LABS: INR 0.98 (0.9-1.15); Partial Thromboplastin Time 27.2 sec (23.0-31.2)
[2020-05-29] MEDS ORDERED: ACETAMINOPHEN 325 MG TAB PO ONE (17:30)
[2020-05-29] MEDS ORDERED: hydrALAZINE HCL 20 MG/ML VL IV PRN (19:00)
[2020-05-29] MEDS ORDERED: ONDANSETRON HCL 4 MG/2 ML VIAL IV PRN (19:00)
[2020-05-29] MEDS ORDERED: DEXTROSE (50%) 50ML SYRG IV PRN (19:00)
[2020-05-29] MEDS ORDERED: ACETAMINOPHEN 500 MG TAB PO PRN (19:00)
[2020-05-29] MEDS ORDERED: NITROGLYCERIN 0.4 MG SL TAB SL PRN (19:00)
[2020-05-29] MEDS ORDERED: MORPHINE SULF INJ 2 MG/ML SYRINGE 1ML IV PRN ×2 (19:00)
[2020-05-29] MEDS: BUPROPION HCL 150 MG PO SCH (22:00)
[2020-05-29] MEDS: InsuLIN REG 1unit/0.01ml Soln (100units/ml) SC SCH (22:00)
[2020-05-29] MEDS: ACCU-CHEK COMFORT CURVE STRIP VI SCH (22:02)
[2020-05-29] MEDS: lamoTRIgine 100 MG TAB PO SCH (22:59)
[2020-05-29] MEDS: METOPROLOL TARTRATE 25 MG TAB PO SCH (23:00)
[2020-05-29] MEDS: ATORVASTATIN 20 MG TAB PO SCH (23:00)
[2020-05-29] MEDS: HYDROcodone-ACET 5/325MG TAB PO PRN (23:01)
[2020-05-30] VITALS (7 sets, daily range): BP systolic 95–115; BP diastolic 33–64
[2020-05-30] MEDS ORDERED: INFLUENZA QUAD 2020-2021 0.5 ML SYRG IM ONE (04:45)
[2020-05-30] MEDS: diphenhdrAMINE HCL 25 MG CAP PO PRN ×2 (04:45→21:50)
[2020-05-30] MEDS: LEVOTHYROXINE SODIUM 50 MCG TAB PO SCH (06:18)
[2020-05-30] MEDS: ACCU-CHEK COMFORT CURVE STRIP VI SCH ×4 (06:18→21:49)
[2020-05-30] MEDS: InsuLIN REG 1unit/0.01ml Soln (100units/ml) SC SCH ×4 (06:18→21:50)
[2020-05-30] MEDS: BUPROPION HCL 150 MG PO SCH ×2 (08:45→21:48)
[2020-05-30] MEDS: ASPirin-EC 81 mg tab PO SCH (08:46)
[2020-05-30] MEDS: METOPROLOL TARTRATE 25 MG TAB PO SCH ×2 (08:46→21:49)
[2020-05-30] MEDS: lamoTRIgine 100 MG TAB PO SCH ×2 (08:46→21:49)
[2020-05-30] MEDS: LISINOPRIL 10 MG TAB PO SCH (08:47)
[2020-05-30] MEDS: FAMOTIDINE 20 MG TAB PO SCH (08:47)
[2020-05-30] MEDS ORDERED: METF-370 PO (16:41)
[2020-05-30] MEDS: HYDROcodone-ACET 5/325MG TAB PO PRN (19:56)
[2020-05-30] MEDS: ATORVASTATIN 20 MG TAB PO SCH (21:49)
[2020-05-31] VITALS (7 sets, daily range): BP systolic 95–142; BP diastolic 33–82
[2020-05-31] MEDS: InsuLIN REG 1unit/0.01ml Soln (100units/ml) SC SCH ×4 (06:10→21:27)
[2020-05-31] MEDS: ACCU-CHEK COMFORT CURVE STRIP VI SCH ×4 (06:10→21:27)
[2020-05-31] MEDS: LEVOTHYROXINE SODIUM 50 MCG TAB PO SCH (06:10)
[2020-05-31 06:11] LABS: Basophils # (auto) 0 10 ^3/uL (0-0.2); Basophils % (auto) 0.6 % (0.0-2.0); Eosinophils # (auto) 0.3 10 ^3/uL (0-0.8); Eosinophils % (auto) 3.9 % (0.0-7.0); Hemoglobin 12.9 g/dL (12.2-16.2); Lymphocytes # (auto) 2.1 10 ^3/uL (0.4-5.4); Lymphocytes % (auto) 29.7 % (10.0-50.0); Mean Corpuscular Hemoglobin 28.3 pg (28.0-32.0); Mean Corpuscular Hgb Conc. 33.8 g/dL (32.0-36.0); Mean Corpuscular Volume 83.7 fL (80.0-100.0); Monocytes # (auto) 0.5 10 ^3/uL (0-1.3); Monocytes % (auto) 6.4 % (0.0-12.0); Neutrophils # (auto) 4.2 10 ^3/uL (1.6-8.6); Neutrophils % (auto) 59.4 % (37.0-80.0); Nucleated Red Blood Cells % 0.2 %; Platelet Count (auto) 309 10^3/uL (140-450); Red Blood Cells 4.55 10^6/uL (4.0-5.20); Red Cell Distribution Width 15.3 % (11.8-14.3); White Blood Cell 7.1 10^3/uL (4.4-10.8)
[2020-05-31 06:31] LABS: Anion Gap 6 (5-15); Blood Urea Nitrogen 18 mg/dL (7-18); Calcium 8.8 mg/dL (8.5-10.1); Carbon Dioxide 25 mmol/L (21-32); Chloride 111 mmol/L (98-107); Potassium 4.2 mmol/L (3.5-5.1); Sodium 142 mmol/L (136-145)
[2020-05-31 06:40] LABS: BUN/Creatinine Ratio 19.4; GFR African American 78 mL/min; GFR Non-African American 64 mL/min; Glucose 105 mg/dL (74-106)
[2020-05-31] MEDS: HYDROcodone-ACET 5/325MG TAB PO PRN ×2 (06:40→19:47)
[2020-05-31] MEDS ORDERED: ADENOSINE 89 MG in GIVE UN-DILUTED 0 ML IV STA (08:37)
[2020-05-31] MEDS: BUPROPION HCL 150 MG PO SCH ×2 (10:00→21:28)
[2020-05-31] MEDS: METOPROLOL TARTRATE 25 MG TAB PO SCH ×2 (12:38→21:28)
[2020-05-31] MEDS: lamoTRIgine 100 MG TAB PO SCH ×2 (12:38→21:28)
[2020-05-31] MEDS: ASPirin-EC 81 mg tab PO SCH (12:38)
[2020-05-31] MEDS: FAMOTIDINE 20 MG TAB PO SCH (12:38)
[2020-05-31] MEDS: LISINOPRIL 10 MG TAB PO SCH (12:39)
[2020-05-31] MEDS ORDERED: TROLAMINE SALICYLATE 10% TOP CREAM TOP PRN (14:45)
[2020-05-31] MEDS: ATORVASTATIN 20 MG TAB PO SCH (21:27)
[2020-06-01 05:00] VITALS: BP 134/73
[2020-06-01] MEDS: ACCU-CHEK COMFORT CURVE STRIP VI SCH ×3 (06:13→16:54)
[2020-06-01] MEDS: InsuLIN REG 1unit/0.01ml Soln (100units/ml) SC SCH ×3 (06:13→16:54)
[2020-06-01] MEDS: LEVOTHYROXINE SODIUM 50 MCG TAB PO SCH (06:13)
[2020-06-01 09:00] VITALS: BP 150/80
[2020-06-01] MEDS: METOPROLOL TARTRATE 25 MG TAB PO SCH (10:00)
[2020-06-01 10:07] LABS: Basophils # (auto) 0.1 10 ^3/uL (0-0.2); Eosinophils # (auto) 0.2 10 ^3/uL (0-0.8); Eosinophils % (auto) 2.9 % (0.0-7.0); Hematocrit 38.7 % (36.0-46.0); Lymphocytes # (auto) 1.4 10 ^3/uL (0.4-5.4); Lymphocytes % (auto) 19.8 % (10.0-50.0); Mean Corpuscular Hemoglobin 28.4 pg (28.0-32.0); Mean Corpuscular Hgb Conc. 33.7 g/dL (32.0-36.0); Mean Corpuscular Volume 84.3 fL (80.0-100.0); Monocytes # (auto) 0.5 10 ^3/uL (0-1.3); Monocytes % (auto) 6.4 % (0.0-12.0); Neutrophils % (auto) 69.9 % (37.0-80.0); Nucleated Red Blood Cells % 0.5 %; Platelet Count (auto) 292 10^3/uL (140-450); Red Blood Cells 4.59 10^6/uL (4.0-5.20); Red Cell Distribution Width 15.2 % (11.8-14.3); White Blood Cell 7.2 10^3/uL (4.4-10.8)
[2020-06-01 10:08] LABS: Calcium 8.8 mg/dL (8.5-10.1); Potassium 3.8 mmol/L (3.5-5.1)
[2020-06-01 10:10] LABS: BUN/Creatinine Ratio 18.6
[2020-06-01] MEDS: BUPROPION HCL 150 MG PO SCH (11:54)
[2020-06-01] MEDS: ASPirin-EC 81 mg tab PO SCH (11:54)
[2020-06-01] MEDS: lamoTRIgine 100 MG TAB PO SCH (11:55)
[2020-06-01] MEDS: FAMOTIDINE 20 MG TAB PO SCH (11:55)
[2020-06-01] MEDS: LISINOPRIL 10 MG TAB PO SCH (11:55)
[2020-06-01] MEDS: HYDROcodone-ACET 5/325MG TAB PO PRN (11:56)
[2020-06-01 13:00] VITALS: BP 152/87
[2020-06-01 14:25] VITALS: BP 152/87
[2020-06-01] MEDS ORDERED: GLIM4TAB42 PO (14:33)
[2020-06-01] MEDS ORDERED: METF-929 PO (14:42)
== END 2020-06-01 17:17 | disposition home or self-care (01) | DRG 311 ==
LOC: ER 11:45 → TELE 18:56 → TELE-WESTW 05-30 02:06
PROVIDERS: ADMIT Nurse Practitioner Acute Care; ATTEND Family Medicine
DX: I20.0 Unstable angina (principal); I10 Essential (primary) hypertension; Z20.822 Contact with and (suspected) exposure to COVID-19; J44.9 Chronic obstructive pulmonary disease, unspecified; E66.9 Obesity, unspecified; E03.9 Hypothyroidism, unspecified; E11.21 Type 2 diabetes mellitus with diabetic nephropathy; M54.12 Radiculopathy, cervical region; F32.9 Major depressive disorder, single episode, unspecified; M19.90 Unspecified osteoarthritis, unspecified site; E78.5 Hyperlipidemia, unspecified; Z79.899 Other long term (current) drug therapy; Z83.3 Family history of diabetes mellitus; Z82.49 Family history of ischemic heart disease and other diseases of the circulatory system; Z90.710 Acquired absence of both cervix and uterus; Z90.49 Acquired absence of other specified parts of digestive tract; Z79.84 Long term (current) use of oral hypoglycemic drugs; Z68.36 Body mass index [BMI] 36.0-36.9, adult
CPT/HCPCS: 36415; 71045; 72125; 73030; 78452; 80048; 80053; 81001; 82962; 83036; 83735; 83880; 84443; 84484; 85025; 85379; 85610; 85730; 86141; 87426; 93005; 93017; 93306; 96374; 96375; G0378; J0153; J2405

== ENCOUNTER 2024-02-15 13:34 | Emergency (ER) | payer OTHER ==
[~2024-02-15] VITALS: Ht 167.6 cm; Wt 113.0 kg
[~2024-02-15 13:34] MED LIST changes: -GLIM-6 PO; +GLIM4TAB42 PO; +METF-929 PO; -SITA50TA28 PO
--- NOTE | 2024-02-15 15:40 | ED.PDOC ---
Musculoskeletal HPI Comments 68 y.o female with PMHx of DM, thyroid disease, HTN, hyperlipidemia, and breast cancer, presents to the ED for a chief complaint of bilateral lower extremity swelling associated with SOB that presented one week ago. Patient reports swelling first presented to her right leg, slowly developed onto her left leg, denies any pain or numbness sensation. Patient's SPO2 in the high 90's on RA. Patient denies any chest pain, history of DVT/PE or blood thinner use. Chief Complaint: Extremity Swelling Time Seen by MD: 15:22 Primary Care Provider: PT UNSURE Reviewed Notes: Nurses Notes, Medications, Allergies Allergies: Coded Allergies: NO KNOWN ALLERGIES (Unverified , 11/17/19) Home Meds Reported Medications Metformin HCl (Metformin Hydrochloride) 1,000 Mg Tab, 1000 MG PO BID 06/01/20 Glimepiride (Glimepiride) 4 Mg Tab, 4 MG PO DAILY 06/01/20 Levothyroxine Sodium (Levothyroxine Sodium) 125 Mcg Tab, 125 MCG PO QAM 11/17/19 Bupropion Hcl (Bupropion Hcl Sr) 150 Mg Tab, 150 MG PO BID 11/17/19 Lamotrigine (Lamotrigine) 200 Mg Tab, 200 MG PO BID 11/17/19 Information Source: Patient Mode of Arrival: Ambulatory Location: Bilateral Extremity Location: Leg Timing: Weeks (1) Able to Move Extremity: Yes Bear Weight: Limited Pain: None Mechanism: None Circumstances: Spontaneous Onset of Symptoms: Spontaneous Symptoms: Swelling Associated signs and symptoms: Swelling Past Medical History PAST MEDICAL HISTORY: Depression, DM, High Lipids, HTN, Thyroid Surgical History: Cholecystectomy, Hysterectomy Surgical History (Other): breast STRIP FEEDER History: No Pertinent STRIP FEEDER History Family History Family History: Unobtainable Social History Smoker: Non-Smoker Alcohol: Denies ETOH Use Drugs: Denies Drug Use Lives In: Home Constitutional: denies: chills, diaphoresis, fatigue, fever, malaise, sweats, weakness, others EENTM: denies: blurred vision, double vision, ear bleeding, ear discharge, ear drainage, ear pain, ear ringing, eye pain, eye redness, hearing loss, mouth pain, mouth swelling, nasal discharge, nose bleeding, nose congestion, nose pain, photophobia, tearing, throat pain, throat swelling, voice changes, others Respiratory: reports: SOB at rest, shortness of breath; denies: cough, hemoptysis, orthopnea, SOB with excertion, stridor, wheezing, others Cardiovascular: denies: chest pain, dizzy spells, diaphoresis, Dyspnea on exertion, edema, irregular heart beat, left arm pain, lightheadedness, palpitations, PND, syncope, others Gastrointestinal: denies: abdomen distended, abdominal pain, blood streaked bowels, constipated, diarrhea, dysphagia, difficulty swallowing, hematemesis, melena, nausea, poor appetite, poor fluid intake, rectal bleeding, rectal pain, vomiting, others Genitourinary: denies: abnormal vagina bleeding, burning, dyspareunia, dysuria, flank pain, frequency, hematuria, incontinence, pain, , vagina discharge, urgency, others Neurological: denies: dizziness, fainting, headache, left sided numbness, left sided weakness, numbness, paresthesia, pre-existing deficit, right sided numbness, right sided weakness, seizure, speech problems, tingling, tremors, weakness, others Musculoskeletal: reports: others (Bilateral leg swelling ); denies: back pain, gout, joint pain, joint swelling, muscle pain, muscle stiffness, neck pain Integumetry: denies: bruises, change in color, change in hair/nails, dryness, laceration, lesions, lumps, rash, wounds, others Allergic/Immunocompromised: denies: Difficulty Healing, Frequent Infections, Hives, Itching, others Hematologic/Lymphatic: denies: anemia, blood clots, easy bleeding, easy bruising, swollen glands, others Endocrine: denies: excessive hunger, excessive sweating, excessive thirst, excessive urination, flushing, intolerance to cold, intolerance to heat, unexpla ined weight gain, unexplained weight loss, others Psychiatric: denies: anxiety, bipolar disorder, depression, hopeless, panic disorder, schizophrenia, sleepless, suicidal, others All Other Systems: Reviewed and Negative Physical Exam General Appearance: No Apparent Distress, Obese HEENT: Normal ENT Inspection, PERRL/EOMI Neck: Full Range of Motion, Non-Tender, Normal Inspection Respiratory: Chest Non-Tender, Lungs Clear, No Accessory Muscle Use, No Respiratory Distress, Normal Breath Sounds Cardiovascular: No Edema, No JVD, No Murmur, No Gallop, Normal Peripheral Pulses, Regular Rate/Rhythm Breast Exam: Deferred Gastrointestinal: No Organomegaly, Non Tender, No Pulsatile Mass, Normal Bowel Sounds, Soft Genitalia: Deferred Pelvic: Deferred Rectal: Deferred Extremities: Inflammation, Leg edema, Normal range of motion, Pedal edema, Swelling, Tender, Other (THE LEFT LEG STARTED A WEEK AGO AND THE RIGHT LEG STARTING TODAY SWOLLEN AND TENDER) Neurologic: Alert, right of way man II-XII nml as Tested, No Motor Deficits, Normal Affect, Normal Mood, No Sensory Deficits Cerebellar Function: Normal Reflexes: Normal Skin: Dry, Normal Color, Warm Peripheral Pulses: 1+ carotid (R), 1+ carotid (L) Lymphatic: No Adenopathy Was a procedure done? Was a procedure done?: No EKG EKG : Pulse Rate (adult): 90 [place]: LAD Cardiac Rhythm: NSR Hypertrophy: LAE Differential Diagnosis EXT Differential Diagnosis: Cellulitis, CHF, Deep Vein Thrombosis, Sprain, Gout X-Ray, Labs, Meds, VS Vital Signs Date Time Temp Pulse Resp B/P (MAP) Pulse Ox O2 Delivery O2 Flow Rate FiO2 02/15/24 16:05 90 02/15/24 14:34 95 02/15/24 14:17 98.1 100 18 138/92 (107) 96 Lab Test 02/15/24 16:16 Range/Units White Blood Count 10.9 H 4.4-10.8 10^3/uL Red Blood Count 4.87 4.0-5.20 10^6/uL Hemoglobin 13.3 12.2-16.2 g/dL Hematocrit 40.2 36.0-46.0 % Mean Corpuscular Volume 82.7 80.0-100.0 fL Mean Corpuscular Hemoglobin 27.4 L 28.0-32.0 pg Mean Corpuscular Hemoglobin Concent 33.2 32.0-36.0 g/dL Red Cell Distribution Width 15.8 H 11.8-14.3 % Platelet Count 336 140-450 10^3/uL Mean Platelet Volume 7.2 6.9-10.8 fL Neutrophils (%) (Auto) 74.3 37.0-80.0 % Lymphocytes (%) (Auto) 16.6 10.0-50.0 % Monocytes (%) (Auto) 5.8 0.0-12.0 % Eosinophils (%) (Auto) 2.3 0.0-7.0 % Basophils (%) (Auto) 1.0 0.0-2.0 % Neutrophils # (Auto) 8.1 1.6-8.6 10 ^3/uL Lymphocytes # (Auto) 1.8 0.4-5.4 10 ^3/uL Monocytes # (Auto) 0.6 0-1.3 10 ^3/uL Eosinophils # (Auto) 0.3 0-0.8 10 ^3/uL Basophils # (Auto) 0.1 0-0.2 10 ^3/uL Nucleated Red Blood Cells 0.1 % Sodium Level 139 136-145 mmol/L Potassium Level 4.7 3.5-5.1 mmol/L Chloride Level 104 98-107 mmol/L Carbon Dioxide Level 27 20-31 mmol/L Anion Gap 8 5-15 Blood Urea Nitrogen 19 9-23 mg/dL Creatinine 1.02 0.550-1.02 mg/dL Glomerular Filtration Rate Calc 59 >90 mL/min BUN/Creatinine Ratio 18.6 10.0-20.0 Serum Glucose 122 H 74-106 mg/dL Calcium Level 10.5 H 8.7-10.4 mg/dL Magnesium Level 1.8 1.6-2.6 mg/dL B-Type Natriuretic Peptide 40.36 0-100 pg/mL X-Ray, Labs, Meds, VS Comment COURSE IN THE EMERGENCY DEPARTMENT UNEVENTFUL PATIENT CAME IN COMPLAINING OF SWOLLEN TO THE LEFT LEG FROM LAST WEEK AND RIGHT LEG GETTING WORSE CHEST X-RAY IS NORMAL EKG SHOWS NORMAL SINUS RHYTHM AT 95 WITH LEFT ATRIAL ENLARGEMENT OF THE LEFT AX IS DEVIATION ULTRASOUND DVT NEGATIVE CBC 83288 WITH 74% NEUTROPHILS NORMAL H&H BNP 40.3 BNP NEGATIVE MAGNESIUM 1.8 PATIENT WILL BE DISCHARGED HOME TO FOLLOW UP WITH THE PCP Time of 1ST Reevaluation: 15:37 Reevaluation 1ST: Unchanged Time of 2ND Reevaluation: 17:06 Reevaluation 2ND: Unchanged Consultation: PCP Patient Education/Counseling: Diagnosis, Treatment, Prognosis, Need For Follow Up Family Education/Counseling: Diagnosis, Treatment, Prognosis, Need For Follow Up, No Family Present Departure 1 Departure Time of Disposition: 17:08 Impression: Primary Impression: Fluid retention in legs Additional Impression: Breast cancer Qualified Codes: C50.919 - Malignant neoplasm of unspecified site of unspecified female breast Ruled Out: DVT (deep venous thrombosis) Disposition: 01 HOME / SELF CARE / HOMELESS Condition: Fair Additional Instructions: YOU NEED TO FOLLOW UP WITH YOUR PCP FOR FURTHER CARE e-Prescriptions Spironolactone (Aldactone) 25 Mg Tab 1 TAB PO DAILY PRN for 5 Days, #5 TAB 1 Refill Prov: MICHELLE FLORES MD 02/15/24 Furosemide (Lasix) 20 Mg Tb 1 TAB PO DAILY PRN for 5 Days, #5 TAB 1 Refill Prov: MICHELLE FLORES MD 02/15/24 Discharged With: Self Critical Care Note Critical Care Time?: No Stability Stability form required: No Heart Score Heart Score: Heart Score Response (Comments) Value History N/A 0 EKG Normal 0 Age >65 2 Risk Factors 1 or 2 risk factors 1 Troponin N/A 0 Total 3 I personally scribed for MICHELLE FLORES MD ([email or web address]) on 02/15/24 at 15:40. Electronically submitted by Janee Mcqueen ([facility]). MICHELLE FLORES MD Feb 15, 2024 15:40
--- NOTE | 2024-02-15 15:52 | DVH ---
XY CHEST TWO VIEWS ROUTINE CLINICAL HISTORY: Food retention COMPARISON: None TECHNIQUE: Frontal and lateral view of the chest was obtained FINDINGS: Lines and Tubes: None Lungs: No focal consolidation. Pleura: No effusion. No pneumothorax. Cardiomediastinal contours: Unremarkable Bones: No acute osseous abnormality. IMPRESSION: 1. No radiographic evidence of acute cardiopulmonary disease. HS:Y
--- NOTE | 2024-02-15 16:15 | DVH ---
US LT Lower DVT HISTORY: dvt COMPARISON: None TECHNIQUE: Duplex Doppler evaluation of the deep venous system of the lower extremity from the common femoral veins, superficial femoral vein, great saphenous vein, deep femoral vein, popliteal vein, an d calf veins, including color Doppler and spectral/pulsed waveform analysis, was performed. FINDINGS: Left: - Common femoral vein: Compressible - Deep femoral vein: Compressible - Femoral vein: Compressible - Popliteal vein: Compressible - Posterior tibial vein: Waveforms present - Other: Nothing IMPRESSION: No left lower extremity deep venous thrombosis.
[2024-02-15 16:34] LABS: Basophils # (auto) 0.1 10 ^3/uL (0-0.2); Eosinophils # (auto) 0.3 10 ^3/uL (0-0.8); Eosinophils % (auto) 2.3 % (0.0-7.0); Hematocrit 40.2 % (36.0-46.0); Hemoglobin 13.3 g/dL (12.2-16.2); Lymphocytes # (auto) 1.8 10 ^3/uL (0.4-5.4); Lymphocytes % (auto) 16.6 % (10.0-50.0); Mean Corpuscular Hemoglobin 27.4 pg (28.0-32.0); Mean Corpuscular Hgb Conc. 33.2 g/dL (32.0-36.0); Mean Corpuscular Volume 82.7 fL (80.0-100.0); Monocytes # (auto) 0.6 10 ^3/uL (0-1.3); Monocytes % (auto) 5.8 % (0.0-12.0); Neutrophils # (auto) 8.1 10 ^3/uL (1.6-8.6); Neutrophils % (auto) 74.3 % (37.0-80.0); Nucleated Red Blood Cells % 0.1 %; Platelet Count (auto) 336 10^3/uL (140-450); Red Blood Cells 4.87 10^6/uL (4.0-5.20); Red Cell Distribution Width 15.8 % (11.8-14.3); White Blood Cell 10.9 10^3/uL (4.4-10.8)
[2024-02-15 16:47] LABS: Chloride 104 mmol/L (98-107); Potassium 4.7 mmol/L (3.5-5.1); Sodium 139 mmol/L (136-145)
[2024-02-15 16:48] LABS: Anion Gap 8 (5-15); Carbon Dioxide 27 mmol/L (20-31)
[2024-02-15 16:53] LABS: BUN/Creatinine Ratio 18.6 (10.0-20.0); Blood Urea Nitrogen 19 mg/dL (9-23); Magnesium 1.8 mg/dL (1.6-2.6)
[2024-02-15 16:54] LABS: Calcium 10.5 mg/dL (8.7-10.4); Glucose 122 mg/dL (74-106)
[2024-02-15] MEDS ORDERED: SPIR25TA PO (17:35)
[2024-02-15] MEDS ORDERED: FURO1TAB33 PO (17:35)
--- NOTE | 2024-02-15 18:51 | ECG ---
[facility] Test Date: 2024-02-15 Test Time: 14:34:51 Pat Name: DRAKE NASSAR Department: ER Room: Gender: F Bull Bucker: ALEXANDRA : 1955 Requested By: SHILPA HENDRICKSON Order Number: [id number] Reading MD: Measurements Intervals [place] Rate: 95 P: 54 HI: 178 QRS: -26 QRSD: 84 T: 81 QT: 387 QTc: 487 Interpretive Statements Sinus rhythm Probable left atrial enlargement Borderline left axis deviation Abnormal R-wave progression, early transition Borderline prolonged QT interval Please click the below link to view image of tracing.
[2024-02-15 18:56] VITALS: BP 127/74; PULSE 96; RESP 18; TEMP 97.9; O2SAT 96
== END 2024-02-15 19:07 | disposition home or self-care (01) ==
LOC: ER 13:34
DX: C50.919 Malignant neoplasm of unspecified site of unspecified female breast (principal); C79.9 Secondary malignant neoplasm of unspecified site; R60.0 Localized edema; I10 Essential (primary) hypertension; E07.9 Disorder of thyroid, unspecified; E11.9 Type 2 diabetes mellitus without complications; E78.5 Hyperlipidemia, unspecified; F32.A Depression, unspecified; Z90.49 Acquired absence of other specified parts of digestive tract; Z90.710 Acquired absence of both cervix and uterus; Z79.84 Long term (current) use of oral hypoglycemic drugs; Z79.899 Other long term (current) drug therapy
CPT/HCPCS: 36415; 71046; 80048; 83735; 83880; 85025; 93005; 93971